=== PATIENT | female | born 2000 | race Two or more races ===

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

== ENCOUNTER 2022-01-17 17:39 | Emergency (ER) | payer SELFPAY ==
[2022-01-17 19:58] LABS: BLOOD UREA NITROGEN,BUN 9 mg/dL (7.0-18.0); CARBON DIOXIDE,CO2 25.8 mmol/L (21.0-32.0); CHLORIDE,CL 100 mmol/L (98-107); GLUCOSE RANDOM 83 mg/dL (74-106); POTASSIUM,K 3.8 mmol/L (3.5-5.1); SODIUM,NA 136 mmol/L (136-145)
[2022-01-17 21:01] VITALS: BP 128/75; PULSE 72
== END 2022-01-17 21:01 | disposition home or self-care (01) ==
LOC: MW.ED 17:39
DX: O20.9 Hemorrhage in early pregnancy, unspecified (principal); Z3A.01 Less than 8 weeks gestation of pregnancy
CPT/HCPCS: 36415; 76801; 76801-26; 80053; 81001; 84702; 85025; 86900; 86901; 99284; 99284-25

== ENCOUNTER 2022-08-23 00:33 | Inpatient (IN) | payer MEDICAID ==
[2022-08-23] MEDS ORDERED: Misoprostol 25 MCG (1/4 of 100 MCG) Tab VAG PRN ×2 (04:48)
[2022-08-23] MEDS ORDERED: Carboprost Tromethamine 250 MCG/1 ML Amp IM PRN (04:48)
[2022-08-23] MEDS ORDERED: Lidocaine 1% 50 ML MDV INJECT PRN (04:48)
[2022-08-23] MEDS ORDERED: Sodium Chloride 0.9% 10 ML Syringe FLUSH PRN (04:48)
[2022-08-23] MEDS ORDERED: Water For Irrigation,Sterile 1,000 ML Container IRR PRN (04:48)
[2022-08-23] MEDS ORDERED: Methylergonovine 0.2 MG/1 ML Amp IM PRN (04:48)
[2022-08-23] MEDS ORDERED: Misoprostol 200 MCG Tab PO PRN (04:48)
[2022-08-23] MEDS ORDERED: Tranexamic Acid 1,000 MG in Sodium Chloride 0.9% 100 ML IV PRN (04:48)
[2022-08-23] MEDS ORDERED: Terbutaline 1 MG/ML SDV SUBCUT PRN (04:48)
[2022-08-23] MEDS ORDERED: Butorphanol 1 MG/ML SDV IVPUSH PRN (04:48)
[2022-08-23] MEDS ORDERED: Sodium Chloride 0.9% 20 ML SDV IV PRN (04:48)
[2022-08-23] MEDS ORDERED: Sodium Chloride 0.9% 2.5 ML Syringe FLUSH PRN (04:48)
[2022-08-23] MEDS ORDERED: Ondansetron 4 MG/2 ML SDV IVPUSH PRN (04:48)
[2022-08-23] MEDS ORDERED: Oxytocin/0.9 % Sodium Chloride 30 UNIT/500 ML BAG IV SCH ×2 (05:00)
[2022-08-23] MEDS ORDERED: Misoprostol 25 MCG (1/4 of 100 MCG) Tab ONE (06:10)
[2022-08-23] MEDS: Misoprostol 25 MCG (1/4 of 100 MCG) Tab PO SCH ×2 (06:28→10:32)
[2022-08-23] MEDS: Lactated Ringers 1,000 ML IV SCH ×3 (06:38→22:27)
[2022-08-23] MEDS ORDERED: NIFEdipine 10 MG Cap PO PRN (07:47)
[2022-08-23] MEDS ORDERED: ePHEDrine 50 MG/ML SDV IVPUSH PRN ×2 (08:08)
[2022-08-23] MEDS ORDERED: Phenylephrine HCl In 0.9% NaCl 1 MG/10 ML Vial IVPUSH PRN (08:08)
[2022-08-23] MEDS ORDERED: Ropivacaine HCl/PF 400 MG in Premix Bag 1 BAG EPIDUR SCH (08:15)
[2022-08-23] MEDS ORDERED: Phenylephrine HCl In 0.9% NaCl 1 MG/10 ML Vial IVPUSH SCH (08:15)
[2022-08-23] MEDS ORDERED: Labetalol 100 MG/20 ML MDV IVPUSH PRN (10:12)
[2022-08-23] MEDS ORDERED: NIFEdipine 30 MG Tab.ER PO ONE (10:12)
[2022-08-23] MEDS ORDERED: Lidocaine 2% 5 ML SDV ONE (16:31)
[2022-08-24] MEDS: Lactated Ringers 1,000 ML IV SCH (06:06)
[2022-08-24] MEDS ORDERED: Ibuprofen 400 MG Tab PO PRN (07:15)
[2022-08-24] MEDS ORDERED: Acetaminophen 500 MG Tab PO PRN (07:15)
[2022-08-24] MEDS ORDERED: Lanolin 100% Cream 7 GM Tube TOP PRN (07:15)
[2022-08-24] MEDS ORDERED: Witch Hazel Medicated Pads 40/Jar TOP PRN (07:15)
[2022-08-24] MEDS ORDERED: Benzocaine/Menthol 20%-0.5% Spray 78 GM Cannister TOP PRN (07:15)
[2022-08-24] MEDS ORDERED: Bisacodyl 10 MG Supp RECTAL PRN (07:15)
[2022-08-24] MEDS: Acetaminophen 500 MG Tab PO PRN ×3 (08:26→21:25)
[2022-08-24] MEDS: Ibuprofen 800 MG Tab PO PRN ×3 (08:27→21:24)
[2022-08-24] MEDS ORDERED: NIFEdipine 30 MG Tab.ER PO ONE ×2 (08:28→21:00)
[2022-08-24] MEDS ORDERED: NIFEdipine 10 MG Cap PO ONE (21:11)
[2022-08-24] MEDS: Docusate Sodium 100 MG Cap PO PRN (21:26)
[2022-08-24 22:24] LABS: CARBON DIOXIDE,CO2 26.7 mmol/L (21.0-32.0); POTASSIUM,K 4.2 mmol/L (3.5-5.1)
[2022-08-25] MEDS: Ibuprofen 800 MG Tab PO PRN ×2 (04:45→11:18)
[2022-08-25] MEDS: Acetaminophen 500 MG Tab PO PRN ×2 (04:46→09:20)
[2022-08-25 08:46] VITALS: BP 121/93; PULSE 101
[2022-08-25] MEDS: Docusate Sodium 100 MG Cap PO PRN (09:20)
== END 2022-08-25 12:18 | disposition home or self-care (01) | DRG 807 ==
LOC: MW.OBCHECK 00:33 → MW.OB 00:34 → MW.OBCHECK 04:49 → OBSVTOIN 08-24 06:43 → MW.OB 08-24 11:24
PROVIDERS: ADMIT Obstetrics & Gynecology Obstetrics; ATTEND Obstetrics & Gynecology Obstetrics
PROC: 3E0R3BZ Introduction of Anesthetic Agent into Spinal Canal, Percutaneous Approach (ICD-10-PCS; 2022-08-23)
PROC: 00HU33Z Insertion of Infusion Device into Spinal Canal, Percutaneous Approach (ICD-10-PCS; 2022-08-23)
PROC: 10E0XZZ Delivery of Products of Conception, External Approach (ICD-10-PCS; principal; 2022-08-24)
PROC: 10907ZC Drainage of Amniotic Fluid, Therapeutic from Products of Conception, Via Natural or Artificial Opening (ICD-10-PCS; 2022-08-24)
PROC: 3E0P7VZ Introduction of Hormone into Female Reproductive, Via Natural or Artificial Opening (ICD-10-PCS; 2022-08-24)
DX: O24.425 Gestational diabetes mellitus in childbirth, controlled by oral hypoglycemic drugs (principal); Z37.0 Single live birth; Z3A.39 39 weeks gestation of pregnancy; Z20.822 Contact with and (suspected) exposure to COVID-19
CPT/HCPCS: 36415; 51702; 80053; 81003; 82570; 82947; 84156; 85014; 85018; 85025; 85027; 86592; 86850; 86900; 86901; A9270-GY; J2405; J2590; J2795; J7120; U0002

== ENCOUNTER 2024-10-26 22:38 | Emergency (ER) | payer SELFPAY ==
[2024-10-27] MEDS: Sodium Chloride 0.9% 1,000 ML IV STA (00:27)
[2024-10-27] MEDS: Ondansetron 4 MG/2 ML SDV IVPUSH ONE (00:28)
[2024-10-27] MEDS: Ketorolac 30 MG/ML SDV IVPUSH ONE (00:29)
[2024-10-27 00:59] LABS: HEMATOCRIT 43.9 % (37.0-47.0); HEMOGLOBIN 14.2 g/dL (12.0-16.0); MEAN CORPUSCULAR HEMOGLOBIN 25.2 pg (28.0-32.0); MEAN CORPUSCULAR HGB CONC 32.3 g/dL (32.0-36.0); MEAN PLATELET VOLUME 9.4 fL (9.4-12.3); PLATELET COUNT,PLT 443 K/uL (150-400); RED BLOOD CELL COUNT 5.63 M/uL (4.10-5.30); WHITE BLOOD CELL COUNT,WBC 13.81 K/uL (3.9-11.3)
[2024-10-27 01:17] LABS: A/G RATIO 0.9 (0.9-1.6); ALBUMIN 4.1 g/dL (3.4-5.0); BILIRUBIN TOTAL 0.3 mg/dL (0.2-1.0); CARBON DIOXIDE,CO2 25.8 mmol/L (21.0-32.0); CREATININE 0.6 mg/dL (0.6-1.0); EST CRCL DRUG DOSING (CG) 130.1 mL/min; POTASSIUM,K 3.7 mmol/L (3.5-5.1); PROTEIN TOTAL,TP 8.9 g/dL (6.4-8.2)
[2024-10-27 01:34] LABS: BILIRUBIN,URINE NEGATIVE (NEGATIVE); COLOR,URINE YELLOW; GLUCOSE,URINE NEGATIVE (NEGATIVE); KETONES,URINE NEGATIVE (NEGATIVE); LEUKOCYTE ESTERASE,URINE NEGATIVE (NEGATIVE); NITRITE,URINE NEGATIVE (NEGATIVE); OCCULT BLOOD,URINE LARGE (NEGATIVE); PROTEIN,URINE NEGATIVE (NEGATIVE); UROBILINOGEN,URINE 0.2 EU/dL (<2.0)
[2024-10-27 01:45] LABS: EOSINOPHILS ABSOLUTE MAN 0.55 K/uL (0.00-0.45); EOSINOPHILS PERCENT MAN 4 % (0-6); LYMPHOCYTES ABSOLUTE MAN 5.66 K/uL (1.00-4.80); LYMPHOCYTES PERCENT MAN 41 % (24-44); MONOCYTES ABSOLUTE MAN 0.55 K/uL (0.00-0.80); MONOCYTES PERCENT MAN 4 % (0-8); SEG NEUTROPHILS ABSOLUTE MAN 7.04 K/uL (1.80-7.70); SEG NEUTROPHILS PERCENT MAN 51 % (41-71)
[2024-10-27 01:52] LABS: AMPHETAMINES SCREEN, URINE NEGATIVE (CUTOFF=500); BARBITURATE SCREEN,URINE NEGATIVE (CUTOFF=200); BENZODIAZEPINES SCREEN,URINE NEGATIVE (CUTOFF=150); BUPRENORPHINE SCREEN,URINE NEGATIVE (CUTOFF=10); METHADONE SCREEN, URINE NEGATIVE (CUTOFF=200); METHAMPHETAMINES SCREEN, URINE NEGATIVE (CUTOFF=500); OXYCODONE SCREEN,URINE NEGATIVE (CUT0FF=100); PCP SCREEN,URINE NEGATIVE (CUTOFF=25); THC SCREEN,URINE 20 NG/ML NEGATIVE (CUTOFF=50)
[2024-10-27 02:01] LABS: APPEARANCE,URINE HAZY
[2024-10-27 02:02] LABS: BACTERIA,URINE FEW (NEGATIVE); EPITHELIAL CELLS,URINE RARE (NONE-FEW); WBC,URINE 0-1 (0-5/HPF)
[2024-10-27 03:18] VITALS: BP 128/79; PULSE 80
== END 2024-10-27 03:18 | disposition home or self-care (01) ==
LOC: MW.ED 22:38
DX: R19.7 Diarrhea, unspecified (principal); R11.2 Nausea with vomiting, unspecified; R10.32 Left lower quadrant pain; Z79.85 Long-term (current) use of injectable non-insulin antidiabetic drugs
CPT/HCPCS: 36415; 74176; 80053; 80305; 81001; 81025; 83690; 85025; 96361; 96374; 96375; 99284; J1885; J2405; J7030; 99283